=== PATIENT | female | born 1960 | race Caucasian/White ===

== ENCOUNTER → 2019-10-04 10:06 | Outpatient (BNVA) | payer MEDICARE, SELFPAY | PROVIDERS: Family Provider Internal Medicine; PCP Internal Medicine; Visit Provider Specialist | DX: G40.909 Epilepsy, unspecified, not intractable, without status epilepticus (principal); G04.00 Acute disseminated encephalitis and encephalomyelitis, unspecified; R25.1 Tremor, unspecified; G96.9 Disorder of central nervous system, unspecified | CPT/HCPCS: 99213 ==

== ENCOUNTER → 2020-03-06 14:04 | Outpatient (BNVA) | payer MEDICARE, SELFPAY | PROVIDERS: Family Provider Internal Medicine; PCP Internal Medicine; Referring Provider Nurse Practitioner Family; Visit Provider Specialist | DX: G56.21 Lesion of ulnar nerve, right upper limb (principal) | CPT/HCPCS: 95909 ==

== ENCOUNTER → 2020-04-02 14:26 | Outpatient (BNVA) | payer MEDICARE, SELFPAY | PROVIDERS: Family Provider Internal Medicine; PCP Internal Medicine; Visit Provider Specialist | DX: G40.909 Epilepsy, unspecified, not intractable, without status epilepticus (principal); G24.9 Dystonia, unspecified; M79.7 Fibromyalgia | CPT/HCPCS: 20550; 99214; J1030; J3490 ==

== ENCOUNTER → 2020-04-26 11:16 | Outpatient (BNVA) | payer MEDICARE, SELFPAY | PROVIDERS: Family Provider Internal Medicine; PCP Internal Medicine; Visit Provider Specialist | DX: G96.9 Disorder of central nervous system, unspecified (principal); G24.9 Dystonia, unspecified; G25.0 Essential tremor; M79.604 Pain in right leg; M79.605 Pain in left leg | CPT/HCPCS: 64642; 99212; J0585 ==

== ENCOUNTER → 2020-06-07 13:59 | Outpatient (BNVA) | payer MEDICARE, SELFPAY | PROVIDERS: Family Provider Internal Medicine; PCP Internal Medicine; Visit Provider Specialist | DX: G25.0 Essential tremor (principal); G96.9 Disorder of central nervous system, unspecified; G24.8 Other dystonia | CPT/HCPCS: 99213; 99214 ==

== ENCOUNTER → 2020-12-19 14:35 | Outpatient (BNVA) | payer MEDICARE, SELFPAY | PROVIDERS: Family Provider Internal Medicine; PCP Internal Medicine; Visit Provider Specialist | DX: M79.7 Fibromyalgia (principal); R25.1 Tremor, unspecified; G96.9 Disorder of central nervous system, unspecified | CPT/HCPCS: 20550; 99213; J1030; J3490 ==

== ENCOUNTER → 2021-06-18 12:25 | Outpatient (BNVA) | payer MEDICARE, SELFPAY | PROVIDERS: Family Provider Internal Medicine; PCP Internal Medicine; Visit Provider Specialist | DX: R25.1 Tremor, unspecified (principal); G96.89 Other specified disorders of central nervous system; G40.109 Localization-related (focal) (partial) symptomatic epilepsy and epileptic syndromes with simple partial seizures, not intractable, without status epilepticus | CPT/HCPCS: 99214 ==